=== PATIENT | male | born 1995 | race Caucasian/White ===

== ENCOUNTER 2017-08-29 22:37 | Emergency (ER) | payer OTHER ==
[~2017-08-29] VITALS: Ht 162.6 cm; Wt 77.4 kg
[2017-08-29] MEDS ORDERED: INSU100C SQ-INSULIN (23:03)
[2017-08-29] MEDS ORDERED: INSU100I28 SC (23:05)
[2017-08-29] MEDS ORDERED: ONDANSETRON ODT 8 MG ONE (23:07)
[2017-08-29] MEDS ORDERED: KETOROLAC 30 MG/1 ML ONE (23:07)
[2017-08-29 23:19] LABS: BASOPHILS # (AUTO) 0.05 x10^3/uL (0-0.1); BASOPHILS % (AUTO) 1 % (0-1); EOSINOPHILS % (AUTO) 0 % (1-7); LYMPHOCYTES # (AUTO) 1.23 x10^3/uL (1-3.4); LYMPHOCYTES % (AUTO) 14 % (22-44); MD NO; MEAN CORPUSCULAR HEMOGLOBIN 30.9 pg (27.5-34.5); MEAN CORPUSCULAR HGB CONC 34.9 g/dL (33.2-36.2); MEAN CORPUSCULAR VOLUME 88.6 fL (81-97); MEAN PLATELET VOLUME 8.7 fL (7.4-10.4); MONOCYTES # (AUTO) 1.04 x10^3/uL (0.2-0.8); MONOCYTES % (AUTO) 12 % (2-9); NEUTROPHILS # (AUTO) 6.55 x10^3/uL (1.8-6.8); NEUTROPHILS % (AUTO) 74 % (42-75); PLATELET COUNT 193 x10^3/uL (130-400); RED BLOOD COUNT 5.15 x10^6/uL (4.38-5.82); RED CELL DISTRIBUTION WIDTH 12.6 % (9.4-14.8)
[2017-08-29] MEDS ORDERED: ONDANSETRON ODT 4 MG PO ONE (23:30)
[2017-08-29] MEDS ORDERED: SODIUM CHLORIDE 0.9% 1,000ML IVBOLUS ONE (23:30)
[2017-08-29] MEDS ORDERED: KETOROLAC 30 MG/1 ML IVPush ONE (23:30)
[2017-08-29] MEDS ORDERED: SODIUM CHLORIDE FLUSH 10ML SYR IVF ONE (23:30)
[2017-08-29 23:32] LABS: ALBUMIN 3.8 g/dL (3.4-5.0); ANION GAP 10 mmol/L (5-15); CALCIUM 8.7 mg/dL (8.5-10.1); CHLORIDE 100 mmol/L (98-107); CREATININE 1.21 mg/dL (0.7-1.3)
[2017-08-29 23:54] VITALS: BP 120/61
[2017-08-29] MEDS ORDERED: DEXAMETHASONE 4 MG/ML, 5ML ONE (23:56)
[2017-08-30] MEDS ORDERED: DEXAMETHASONE 4 MG/ML, 1ML IVPush ONE
== END 2017-08-30 01:37 | disposition home or self-care (01) ==
LOC: ED 23:59
DX: J02.0 Streptococcal pharyngitis (principal); E10.65 Type 1 diabetes mellitus with hyperglycemia; Z79.4 Long term (current) use of insulin
CPT/HCPCS: 71045; 80048; 82040; 82962; 85025; 87081; 87880; 96374; 96375; 99285; J1100; J1885; J7030; Q0162; 87147

== ENCOUNTER 2020-12-21 21:59 | Inpatient (IN) | payer OTHER ==
[~2020-12-21] VITALS: Ht 165.1 cm; Wt 66.0 kg
[~2020-12-21 21:59] MED LIST: INSU100C SQ-INSULIN; INSU100I28 SC
[2020-12-21] MEDS ORDERED: ONDANSETRON 2MG/ML, 2ML ONE (22:28)
[2020-12-21] MEDS ORDERED: ONDANSETRON 2MG/ML, 2ML IVPush ONE (22:30)
[2020-12-21] MEDS ORDERED: SODIUM CHLORIDE 0.9% 1,000ML IVBOLUS ONE (22:30)
[2020-12-21 22:37] LABS: MEAN CORPUSCULAR HEMOGLOBIN 30.8 pg (27.5-34.5); MEAN CORPUSCULAR HGB CONC 33.6 g/dL (33.2-36.2); MEAN PLATELET VOLUME 9.6 fL (7.4-10.4); PLATELET COUNT 555 x10^3/uL (130-400); RED BLOOD COUNT 5.36 x10^6/uL (4.38-5.82); RED CELL DISTRIBUTION WIDTH 13.2 % (9.4-14.8)
[2020-12-21 22:46] LABS: ALANINE AMINOTRANSFERASE 28 U/L (12-78); ALBUMIN 4.3 g/dL (3.4-5.0); ANION GAP 32 mmol/L (5-15); CALCIUM 9.9 mg/dL (8.5-10.1); CHLORIDE 90 mmol/L (98-107); CREATININE 1.92 mg/dL (0.7-1.3)
[2020-12-21 22:46] LABS: MICROSCOPIC NOT IND
[2020-12-21 22:48] LABS: ALKALINE PHOSPHATASE 166 U/L (45-117); TOTAL PROTEIN 9.5 g/dL (6.4-8.2)
[2020-12-21 23:06] LABS: BANDS%(MANUAL) 10 % (0-7); LYMPH#(MANUAL) 4.03 x10^3/uL (1-3.4); LYMPHS% (MANUAL) 13 % (22-44); METAMYELOCYTES# (MANUAL) 0.31 x10^3/uL (0-0); METAMYELOCYTES% (MANUAL) 1 % (0-1); MONOS#(MANUAL) 0.62 x10^3/uL (0.3-2.7); MONOS% (MANUAL) 2 % (2-9); MYELOCYTES# (MANUAL) 0.31 x10^3/uL (0-0); MYELOCYTES% (MANUAL) 1 % (0-0); SEG#(MANUAL) 22.63 x10^3/uL (1.8-6.8); SEGS% (MANUAL) 73 % (42-75)
--- NOTE | 2020-12-21 23:07 | NUR ---
REPORT TO KAREEM JERNIGAN.
[2020-12-21 23:08] LABS: <PLATELET ESTIMATE> INCREASED; <PLT MORPHOLOGY> NORMAL PLT MORPH; <RBC MORPHOLOGY> NORMAL; PMNS WITH VACUOLES 1+; TOXIC GRAN 1+
[2020-12-21] MEDS ORDERED: REGULAR INSULIN 100 UNITS in SODIUM CHLORIDE 0.9% 99 ML IV PRN (23:30)
[2020-12-21 23:41] LABS: ACETONE, SERUM Large (80mg/dL) (Negative)
[2020-12-22] MEDS: SODIUM CHLORIDE 0.9% 1,000 ML IV SCH ×4 (00:30→18:20)
[2020-12-22] MEDS ORDERED: SODIUM CHLORIDE 0.9% 1,000ML IVBOLUS ONE (00:30)
[2020-12-22] MEDS ORDERED: HYDROcodone/APAP 5/325 TABLET PO PRN (00:30)
[2020-12-22] MEDS ORDERED: D5%-0.45NACL+KCL 20MEQ 1,000 ML IV SCH ×2 (00:30→05:57)
[2020-12-22] MEDS ORDERED: ONDANSETRON ODT 4 MG PO PRN (00:30)
--- NOTE | 2020-12-22 00:40 | NUR ---
no change in insulin drip rate. confirmed with odalis fuentes and elie fuentes Addendum: 12/22/20 at 0209 by [email or web address] Joseline NAJERA also informed about all critical arterial blood gas results
[2020-12-22 02:22] LABS: ESTIMATED AVERAGE GLUCOSE 355 mg/dL (0-126)
[2020-12-22] MEDS ORDERED: REGULAR INSULIN 100 UNITS in SODIUM CHLORIDE 0.9% 99 ML IV PRN (04:00)
[2020-12-22] MEDS ORDERED: DEXTROSE 50%, 50ML SYRINGE IVPush PRN (04:00)
[2020-12-22] MEDS ORDERED: GLUCAGON 1 MG IM PRN (04:00)
[2020-12-22] MEDS ORDERED: DEXTROSE 4 GM TAB.CHEW PO PRN (04:00)
[2020-12-22 04:15] LABS: MEAN CORPUSCULAR HEMOGLOBIN 30.6 pg (27.5-34.5); MEAN CORPUSCULAR HGB CONC 34.1 g/dL (33.2-36.2); MEAN PLATELET VOLUME 8.9 fL (7.4-10.4); PLATELET COUNT 359 x10^3/uL (130-400); RED BLOOD COUNT 4.39 x10^6/uL (4.38-5.82)
[2020-12-22 04:22] LABS: ANION GAP 19 mmol/L (5-15); CALCIUM 7.7 mg/dL (8.5-10.1); CHLORIDE 104 mmol/L (98-107); CREATININE 1.28 mg/dL (0.7-1.3)
[2020-12-22 05:15] LABS: BAND#(MANUAL) 5.86 x10^3/uL; BANDS%(MANUAL) 20 % (0-7); LYMPH#(MANUAL) 3.52 x10^3/uL (1-3.4); LYMPHS% (MANUAL) 12 % (22-44); MONOS#(MANUAL) 0.88 x10^3/uL (0.3-2.7); MONOS% (MANUAL) 3 % (2-9); SEG#(MANUAL) 19.05 x10^3/uL (1.8-6.8); SEGS% (MANUAL) 65 % (42-75)
[2020-12-22 05:18] LABS: <RBC MORPHOLOGY> NORMAL; TOXIC GRAN 1+
[2020-12-22 05:19] LABS: <PLATELET ESTIMATE> ADEQUATE; <PLT MORPHOLOGY> NORMAL PLT MORPH; PMNS WITH VACUOLES 1+
[2020-12-22 05:57] VITALS: BP 97/46
[2020-12-22] MEDS: SODIUM CHLORIDE FLUSH 10ML SYR IVF SCH ×2 (08:40→22:37)
[2020-12-22 09:39] LABS: ANION GAP 7 mmol/L (5-15); CALCIUM 7.9 mg/dL (8.5-10.1); CHLORIDE 111 mmol/L (98-107); CREATININE 1.18 mg/dL (0.7-1.3)
[2020-12-22] MEDS: INSULIN LISPRO 100 UNITS/ML, PEN SQ-INSULIN SCH ×3 (11:30→22:41)
[2020-12-22] MEDS: INSULIN GLARGINE 100 UNITS/ML, PEN SQ-INSULIN SCH ×2 (11:37→22:42)
[2020-12-22 18:00] VITALS: BP 101/62
[2020-12-23 02:24] VITALS: BP 100/62
[2020-12-23 05:42] LABS: BASOPHILS % (AUTO) 1 % (0-1); EOSINOPHILS % (AUTO) 1 % (1-7); LYMPHOCYTES % (AUTO) 39 % (22-44); MEAN CORPUSCULAR HEMOGLOBIN 31.2 pg (27.5-34.5); MEAN CORPUSCULAR HGB CONC 35.5 g/dL (33.2-36.2); MEAN PLATELET VOLUME 8.1 fL (7.4-10.4); MONOCYTES % (AUTO) 4 % (2-9); NEUTROPHILS % (AUTO) 55 % (42-75); PLATELET COUNT 281 x10^3/uL (130-400); RED BLOOD COUNT 4.08 x10^6/uL (4.38-5.82); RED CELL DISTRIBUTION WIDTH 13.3 % (9.4-14.8)
[2020-12-23 05:50] LABS: ANION GAP 7 mmol/L (5-15); CALCIUM 7.9 mg/dL (8.5-10.1); CHLORIDE 109 mmol/L (98-107); CREATININE 0.82 mg/dL (0.7-1.3)
[2020-12-23] MEDS ORDERED: POTASSIUM CHLORIDE 20 MEQ TAB.ER.PRT PO ONE (07:00)
[2020-12-23] MEDS: INSULIN LISPRO 100 UNITS/ML, PEN SQ-INSULIN SCH (07:13)
[2020-12-23 07:47] VITALS: BP 105/68
[2020-12-23] MEDS: SODIUM CHLORIDE FLUSH 10ML SYR IVF SCH (07:57)
[2020-12-23 10:25] VITALS: BP 119/72
== END 2020-12-23 10:33 | disposition home or self-care (01) | DRG 638 ==
LOC: ED 22:00 → EDIP 23:10 → CCU 12-22 02:35 → 4NE 12-22 17:55
PROVIDERS: ADMIT Student in an Organized Health Care Education/Training Program; ATTEND Family Medicine
DX: E10.10 Type 1 diabetes mellitus with ketoacidosis without coma (principal); N17.9 Acute kidney failure, unspecified; D72.829 Elevated white blood cell count, unspecified; G47.9 Sleep disorder, unspecified; E86.0 Dehydration; Z79.4 Long term (current) use of insulin; Z83.3 Family history of diabetes mellitus
CPT/HCPCS: 36415; 36600; 71045; 80048; 80053; 81003; 82010; 82803; 82962; 83036; 83690; 85025; 87040; 87081; 87635; 93005; 96374; 99285; G0378; J1815; J2405; J3480; J7030